=== PATIENT | female | born 1965 | race Two or more races ===

== ENCOUNTER 2020-04-20 16:11 | Inpatient (IN) | payer OTHER ==
[~2020-04-20] VITALS: Ht 170.2 cm; Wt 97.5 kg
[2020-04-20] MEDS ORDERED: AMLODIPINE-OLM1 EAC2 (16:20)
[2020-04-20] MEDS ORDERED: TOPROL XL25 M1 (16:21)
[2020-04-20] MEDS ORDERED: DICY20TA (16:21)
[2020-04-20] MEDS ORDERED: PROTONIX40 M1 (16:21)
[2020-04-20] MEDS ORDERED: VITAMIN D310 MCG/1 M (16:21)
[2020-04-20] MEDS ORDERED: AMBIEN10 MG (16:21)
--- NOTE | 2020-04-20 16:26 | NUR ---
PACIENTE QUE LLEGA ALERTA CONSCIENTE Y ORIENTADA X3 EN COMPANIA DE FAMILIAR. AMBULANDO. REFIERE QUE ESTUVO HOSPITALIZADA EN DOCTOR CENTER. POR DIVERTICULOS PERFORADOS. REFIERE HOY TENER DOLOR ABDOMINAL
--- NOTE | 2020-04-20 17:47 | NUR ---
A EVALUA PTE. SE ORIENTA A PTE SOBRE [place] MEDICO. PTE REFIERE COMPRENDER. SE COLECTAN MUESTRAS DE LABORATORIO BAJO MEDIDAS ASEPTICAS. SE ADMINISTRA MEDICAMENTO SHARRI ORDEN MEDICA. SE NOTIFICA CT.
== END 2020-04-25 10:22 | disposition home or self-care (01) | DRG 392 ==
LOC: ER 16:11 → MEDI 18:48
PROVIDERS: ADMIT Internal Medicine; ATTEND Internal Medicine
PROC: BW21Y0Z Computerized Tomography (CT Scan) of Abdomen and Pelvis using Other Contrast, Unenhanced and Enhanced (ICD-10-PCS; principal; 2020-04-20)
DX: K57.20 Diverticulitis of large intestine with perforation and abscess without bleeding (principal); I10 Essential (primary) hypertension; K76.0 Fatty (change of) liver, not elsewhere classified; E03.8 Other specified hypothyroidism; J45.20 Mild intermittent asthma, uncomplicated; Z20.828 Contact with and (suspected) exposure to other viral communicable diseases